=== PATIENT | male | born 1970 | race Caucasian/White ===

== ENCOUNTER 2018-01-04 11:54 | Emergency (ER) | payer OTHER ==
[~2018-01-04] VITALS: Ht 177.8 cm; Wt 108.9 kg
[2018-01-04] MEDS ORDERED: PLAVIX75 MG PO (12:33)
[2018-01-04] MEDS ORDERED: METOPROLOL SUCC25 MG PO (12:33)
[2018-01-04] MEDS ORDERED: ASPIR 8181 MG PO (12:33)
[2018-01-04] MEDS ORDERED: LISINOPRIL10 MG PO (12:33)
[2018-01-04] MEDS ORDERED: LIPITOR80 MG PO (12:34)
[2018-01-04] MEDS ORDERED: GLUCOPHAGE500 MG PO (12:34)
[2018-01-04] MEDS ORDERED: MULTIVITAMINS1 EAC7 PO (12:34)
[2018-01-04] MEDS ORDERED: AUGMENTIN 875-1 EACH PO (13:38)
== END 2018-01-04 14:00 | disposition home or self-care (01) ==
LOC: ED 11:54
PROC: 0HQNXZZ Repair Left Foot Skin, External Approach (ICD-10-PCS; principal; 2018-01-04)
DX: S92.352A Displaced fracture of fifth metatarsal bone, left foot, initial encounter for closed fracture (principal); S91.312A Laceration without foreign body, left foot, initial encounter; W22.8XXA Striking against or struck by other objects, initial encounter; Z79.899 Other long term (current) drug therapy; Z79.82 Long term (current) use of aspirin; Z79.84 Long term (current) use of oral hypoglycemic drugs
CPT/HCPCS: 12002; 73630; 99283